=== PATIENT | female | born 1975 | race African-American/Black ===

== ENCOUNTER 2021-07-28 08:44 | Emergency (ER) | payer OTHER, MEDICARE ==
[~2021-07-28] VITALS: Ht 165.1 cm; Wt 81.8 kg
[2021-07-28 08:51] VITALS: BP 121/76
[2021-07-28 09:46] LABS: BASOPHILS # (AUTO) 0.1 X10'3 (0-0.2); BASOPHILS % (AUTO) 0.5 % (0-1); EOSINOPHILS # (AUTO) 0.1 X10'3 (0-0.9); EOSINOPHILS % (AUTO) 1.3 % (0-6); HEMATOCRIT 40.5 % (35.0-45.0); HEMOGLOBIN 13.9 g/dl (12.0-16.0); LYMPHOCYTES # (AUTO) 2.3 X10'3 (1.1-4.8); MEAN CORPUSCULAR HEMOGLOBIN 31.1 PG (27.0-31.0); MEAN CORPUSCULAR HGB CONC 34.2 g/dL (33.0-36.5); MEAN CORPUSCULAR VOLUME 90.7 FL (78-98); MEAN PLATELET VOLUME 7.3 FL (7.4-10.4); MONOCYTES # (AUTO) 0.6 X10'3 (0-0.9); MONOCYTES % (AUTO) 5.5 % (2-12); NEUTROPHILS # (AUTO) 7.8 X10'3 (1.8-7.7); NEUTROPHILS % (AUTO) 71.7 % (42-75); PLATELET COUNT 473 X10'3 (140-440); RED BLOOD COUNT 4.46 X10'6 (4.20-5.60); RED CELL DISTRIBUTION WIDTH 13.5 % (11.5-14.5); WHITE BLOOD COUNT 10.9 X10'3 (4.5-11.0)
[2021-07-28 10:00] LABS: ALANINE AMINOTRANSFERASE 18 U/L (12-78); ALBUMIN 4.1 G/DL (3.4-5.0); ALKALINE PHOSPHATASE 102 IU/L (46-116); ANION GAP 11 (8-16); ASPARTATE AMINO TRANSFERASE 10 U/L (10-37); BILIRUBIN,TOTAL 0.3 MG/DL (0.1-1.0); BLOOD UREA NITROGEN 24 MG/DL (7-18); BUN/CREATININE RATIO 19.8 (6.6-38.0); CALCIUM 9.2 MG/DL (8.5-10.1); CHLORIDE 105 MMOL/L (99-107); CREATININE 1.21 MG/DL (0.40-0.90); GLUCOSE 103 MG/DL (70-104); POTASSIUM 3.8 MMOL/L (3.5-5.1); SODIUM 142 MMOL/L (135-145); TOTAL CARBON DIOXIDE 26.4 MMOL/L (24-32); TOTAL PROTEIN 8.1 G/DL (6.4-8.2); eGFR 58 ML/MIN
== END 2021-07-28 13:15 | disposition left against medical advice (07) ==
LOC: ER 08:44
DX: R07.89 Other chest pain (principal); Z53.21 Procedure and treatment not carried out due to patient leaving prior to being seen by health care provider
CPT/HCPCS: 36415; 71045; 80053; 83880; 84484; 85025; 93005; 99285

== ENCOUNTER 2022-02-20 22:00 | Emergency (ER) | payer OTHER, MEDICARE ==
[~2022-02-20] VITALS: Ht 165.1 cm; Wt 93.2 kg
[2022-02-21] MEDS ORDERED: cloNIDine 0.1 mg tablet PO SCH (00:55)
[2022-02-21] MEDS ORDERED: CLON0.2T PO (00:57)
[2022-02-21 01:07] VITALS: BP 192/98
== END 2022-02-21 01:09 | disposition home or self-care (01) ==
LOC: ER 22:00
DX: I10 Essential (primary) hypertension (principal); R11.0 Nausea; F17.210 Nicotine dependence, cigarettes, uncomplicated; Z90.49 Acquired absence of other specified parts of digestive tract; Z88.8 Allergy status to other drugs, medicaments and biological substances; Z79.899 Other long term (current) drug therapy
CPT/HCPCS: 93005; 99284

== ENCOUNTER 2022-10-07 05:46 | Emergency (ER) | payer OTHER, MEDICARE ==
[~2022-10-07] VITALS: Ht 165.1 cm; Wt 77.5 kg
[~2022-10-07 05:46] MED LIST: CLON0.2T PO
[2022-10-07] MEDS ORDERED: atenolol 50mg tablet PO ONE (06:35)
[2022-10-07] MEDS ORDERED: cloNIDine 0.1 mg tablet PO ONE (06:35)
[2022-10-07] MEDS ORDERED: amLODIPine 5mg tablet PO ONE (06:35)
[2022-10-07 06:38] LABS: BASOPHILS # (AUTO) 0.1 X10'3 (0-0.2); BASOPHILS % (AUTO) 0.6 % (0-1); EOSINOPHILS # (AUTO) 0.2 X10'3 (0-0.9); EOSINOPHILS % (AUTO) 2.6 % (0-6); HEMATOCRIT 39.7 % (35.0-45.0); HEMOGLOBIN 13.5 g/dl (12.0-16.0); LYMPHOCYTES # (AUTO) 2.7 X10'3 (1.1-4.8); LYMPHOCYTES % (AUTO) 32.7 % (21-51); MEAN CORPUSCULAR HEMOGLOBIN 29.6 PG (27.0-31.0); MEAN CORPUSCULAR HGB CONC 33.9 g/dL (33.0-36.5); MEAN CORPUSCULAR VOLUME 87.2 FL (78-98); MEAN PLATELET VOLUME 7.6 FL (7.4-10.4); MONOCYTES # (AUTO) 0.4 X10'3 (0-0.9); MONOCYTES % (AUTO) 4.7 % (2-12); NEUTROPHILS # (AUTO) 4.9 X10'3 (1.8-7.7); NEUTROPHILS % (AUTO) 59.4 % (42-75); PLATELET COUNT 393 X10'3 (140-440); RED BLOOD COUNT 4.56 X10'6 (4.20-5.60); RED CELL DISTRIBUTION WIDTH 12.8 % (11.5-14.5); WHITE BLOOD COUNT 8.3 X10'3 (4.5-11.0)
[2022-10-07] MEDS ORDERED: CLON0.2T PO (06:38)
[2022-10-07 06:52] LABS: ALANINE AMINOTRANSFERASE 11 U/L (12-78); ALBUMIN 3.8 G/DL (3.4-5.0); ALBUMIN/GLOBULIN RATIO 1.1 (1.1-1.5); ALKALINE PHOSPHATASE 105 IU/L (46-116); ANION GAP 7 (8-16); ASPARTATE AMINO TRANSFERASE 14 U/L (10-37); BILIRUBIN,TOTAL 0.3 MG/DL (0.1-1.0); BLOOD UREA NITROGEN 19 MG/DL (7-18); BUN/CREATININE RATIO 28.4 (6.6-38.0); CALCIUM 9.2 MG/DL (8.5-10.1); CHLORIDE 106 MMOL/L (99-107); CREATININE 0.67 MG/DL (0.40-0.90); GLUCOSE 98 MG/DL (70-104); POTASSIUM 3.3 MMOL/L (3.5-5.1); SODIUM 141 MMOL/L (135-145); TOTAL CARBON DIOXIDE 27.6 MMOL/L (24-32); TOTAL PROTEIN 7.3 G/DL (6.4-8.2); eGFR > 90 ML/MIN
[2022-10-07 07:00] LABS: MAGNESIUM 1.9 MG/DL (1.5-2.4)
[2022-10-07 08:03] VITALS: BP 176/99
== END 2022-10-07 08:05 | disposition home or self-care (01) ==
LOC: ER 05:47
DX: I10 Essential (primary) hypertension (principal); F17.200 Nicotine dependence, unspecified, uncomplicated; F31.9 Bipolar disorder, unspecified; F12.10 Cannabis abuse, uncomplicated; Z88.5 Allergy status to narcotic agent; Z79.899 Other long term (current) drug therapy
CPT/HCPCS: 36415; 80053; 83735; 83880; 84484; 85025; 99284

== ENCOUNTER 2022-12-14 08:47 | Emergency (ER) | payer OTHER, MEDICARE ==
[~2022-12-14] VITALS: Ht 165.1 cm; Wt 77.3 kg
[2022-12-14] MEDS ORDERED: cloNIDine 0.1 mg tablet PO STA (09:42)
[2022-12-14] MEDS ORDERED: amLODIPine 5mg tablet PO ONE (09:45)
[2022-12-14] MEDS ORDERED: AMLO10TA PO (09:46)
[2022-12-14] MEDS ORDERED: CLON0.2T PO (09:46)
--- NOTE | 2022-12-14 10:30 | NUR ---
Per Pearl, RUFFLER its okay to give the Clonidine and Amlodipine when I reported to her that pt heart rate was between 46-50. Pt denies lightheadedness.
[2022-12-14 11:03] VITALS: BP 118/99
== END 2022-12-14 11:09 | disposition home or self-care (01) ==
LOC: ER 08:47
DX: I10 Essential (primary) hypertension (principal); F12.90 Cannabis use, unspecified, uncomplicated; Z88.8 Allergy status to other drugs, medicaments and biological substances
CPT/HCPCS: 99283

== ENCOUNTER 2023-02-08 01:33 | Emergency (ER) | payer OTHER, MEDICARE ==
[~2023-02-08] VITALS: Ht 165.1 cm; Wt 77.3 kg
[~2023-02-08 01:33] MED LIST changes: +AMLO10TA PO
[2023-02-08 01:56] VITALS: BP 152/112
[2023-02-08] MEDS ORDERED: cloNIDine 0.1 mg tablet PO SCH (04:15)
[2023-02-08] MEDS ORDERED: acetaminophen 325mg tablet PO ONE (04:15)
[2023-02-08] MEDS ORDERED: cloNIDine 0.1 mg tablet PO ONE (04:15)
[2023-02-08] MEDS ORDERED: clonidine PO (04:20)
== END 2023-02-08 05:34 | disposition home or self-care (01) ==
LOC: ER 01:34
DX: I10 Essential (primary) hypertension (principal); R51.9 Headache, unspecified; F12.90 Cannabis use, unspecified, uncomplicated; Z88.8 Allergy status to other drugs, medicaments and biological substances
CPT/HCPCS: 99283

== ENCOUNTER 2023-05-29 08:39 | Inpatient (IN) | payer OTHER, MEDICARE ==
[~2023-05-29] VITALS: Ht 165.1 cm; Wt 79.5 kg
[~2023-05-29 08:39] MED LIST changes: +clonidine PO
[2023-05-29 08:57] LABS: BASOPHILS # (AUTO) 0.1 X10'3 (0-0.2); BASOPHILS % (AUTO) 1.1 % (0-1); EOSINOPHILS # (AUTO) 0.2 X10'3 (0-0.9); EOSINOPHILS % (AUTO) 2.1 % (0-6); HEMATOCRIT 42.6 % (35.0-45.0); HEMOGLOBIN 14.9 g/dl (12.0-16.0); LYMPHOCYTES # (AUTO) 3.7 X10'3 (1.1-4.8); LYMPHOCYTES % (AUTO) 36.9 % (21-51); MEAN CORPUSCULAR HEMOGLOBIN 31.8 PG (27.0-31.0); MEAN CORPUSCULAR HGB CONC 34.9 g/dL (33.0-36.5); MEAN CORPUSCULAR VOLUME 91.1 FL (78-98); MEAN PLATELET VOLUME 7.3 FL (7.4-10.4); MONOCYTES # (AUTO) 0.5 X10'3 (0-0.9); MONOCYTES % (AUTO) 5.2 % (2-12); NEUTROPHILS # (AUTO) 5.5 X10'3 (1.8-7.7); NEUTROPHILS % (AUTO) 54.7 % (42-75); PLATELET COUNT 448 X10'3 (140-440); RED BLOOD COUNT 4.68 X10'6 (4.20-5.60); RED CELL DISTRIBUTION WIDTH 12.9 % (11.5-14.5); WHITE BLOOD COUNT 10.1 X10'3 (4.5-11.0)
[2023-05-29 09:10] LABS: ALANINE AMINOTRANSFERASE 16 U/L (12-78); ALBUMIN 4.4 G/DL (3.4-5.0); ALKALINE PHOSPHATASE 97 IU/L (46-116); ANION GAP 10 (8-16); ASPARTATE AMINO TRANSFERASE 13 U/L (10-37); BILIRUBIN,TOTAL 0.4 MG/DL (0.1-1.0); BLOOD UREA NITROGEN 13 MG/DL (7-18); CALCIUM 9.9 MG/DL (8.5-10.1); CHLORIDE 104 MMOL/L (99-107); CREATININE 0.93 MG/DL (0.40-0.90); GLUCOSE 91 MG/DL (70-104); POTASSIUM 3.1 MMOL/L (3.5-5.1); SODIUM 140 MMOL/L (135-145); TOTAL CARBON DIOXIDE 25.9 MMOL/L (24-32); TOTAL PROTEIN 8.6 G/DL (6.4-8.2); eCRCL 68 ML/MIN; eGFR 79 ML/MIN
[2023-05-29 09:17] LABS: PRO BRAIN NATRIURETIC PEPTIDE 360 PG/ML (0-125)
[2023-05-29] MEDS ORDERED: nitroGLYCERIN 0.4mg SUBLingual tab SL PRN ×2 (10:25→23:00)
[2023-05-29] MEDS ORDERED: cloNIDine 0.1 mg tablet PO ONE ×2 (10:25→11:35)
[2023-05-29] MEDS ORDERED: aspirin 325mg tablet, delayed-release (Ecotrin) PO ONE (10:25)
[2023-05-29] MEDS: POTASSIUM BICARB 20meq eff tab 20 MEQ TABLET.EFF PO SCH (10:30)
[2023-05-29] MEDS ORDERED: CLON0.3T PO (12:04)
[2023-05-29] MEDS ORDERED: ATEN50TA PO (12:04)
[2023-05-29] MEDS ORDERED: AMLO10TA PO (12:05)
[2023-05-29] MEDS ORDERED: acetaminophen 325mg tablet PO ONE (12:10)
[2023-05-29] MEDS ORDERED: enoxaparin 100mg/ml syringe SUBCUT ONE (13:50)
[2023-05-29] MEDS ORDERED: clopidogrel 300mg tablet PO ONE (13:50)
[2023-05-29] MEDS ORDERED: enoxaparin 80mg/0.8ml syringe SUBCUT ONE (13:55)
[2023-05-29] MEDS ORDERED: potassium Cl 20 mEq SR tablet PO PRN (15:15)
[2023-05-29] MEDS ORDERED: acetaminophen 325mg tablet PO PRN (15:15)
[2023-05-29] MEDS ORDERED: magnesium 2GM in 50ml NS 50 ML IV PRN (15:15)
[2023-05-29] MEDS ORDERED: magnesium 4gm in 100ml NS 100 ML IV PRN (15:15)
[2023-05-29] MEDS ORDERED: ondansetron/PF 4mg/2ml inj IV PRN (15:15)
[2023-05-29] MEDS ORDERED: potassium Cl 40MEQ/1/2NS 520ml 520 ML IV PRN (15:15)
[2023-05-29] MEDS ORDERED: magnesium Cl slow-release 64mg tablet PO PRN (15:15)
[2023-05-29] MEDS ORDERED: magnesium hydroxide 30ml (MOM) UD suspension PO PRN (15:15)
[2023-05-29] MEDS ORDERED: mag hydrox/Alum hydrox/simeth 30ml oral suspension PO PRN (15:15)
[2023-05-29] MEDS ORDERED: amLODIPine 5mg tablet PO SCH ×2 (15:25→20:00)
[2023-05-29] MEDS ORDERED: labetalol 100mg tablet PO STA (16:20)
[2023-05-29 16:55] VITALS: BP 181/110; PULSE 67; RESP 20; TEMP 97.5; O2SAT 98
[2023-05-29 18:00] VITALS: BP 130/90; PULSE 89; RESP 12; TEMP 97.7; O2SAT 100
[2023-05-29] MEDS: potassium Cl 20 mEq SR tablet PO PRN ×2 (18:05→22:05)
[2023-05-29] MEDS ORDERED: hydrALAZINE 20mg/ml inj. IV PRN (18:40)
[2023-05-29] MEDS: nicotine 7mg patch - 24hr TD SCH (19:00)
[2023-05-29 20:00] VITALS: RESP 12; O2SAT 100
[2023-05-29] MEDS ORDERED: heparin, porcine 5000 units/ml vial SQ SCH (20:00)
[2023-05-29] MEDS: K and/or MAG REPLACEMENT MC SCH (20:00)
[2023-05-29] MEDS: docusate sod 100mg capsule PO SCH (20:32)
[2023-05-29] MEDS: atenolol 50mg tablet PO SCH (20:32)
[2023-05-29] MEDS: cloNIDine 0.1 mg tablet PO SCH (20:33)
[2023-05-29 22:00] VITALS: BP 92/53; PULSE 80; RESP 14; TEMP 97.7; O2SAT 99
[2023-05-29] MEDS ORDERED: aminophylline 250mg/10ml inj. IV PRN (23:00)
[2023-05-29] MEDS ORDERED: metoprolol tartrate 1mg/ml inj IV PRN (23:00)
[2023-05-29] MEDS ORDERED: regadenoson 0.4mg/5ml syringe IV PRN (23:00)
[2023-05-30] VITALS (15 sets, daily range): BP systolic 103–154; BP diastolic 60–94; PULSE 73–94; RESP 11–24; TEMP 97.2–97.9; O2SAT 98–100
[2023-05-30] MEDS: potassium Cl 20 mEq SR tablet PO PRN (02:22)
[2023-05-30 06:31] LABS: ALANINE AMINOTRANSFERASE 17 U/L (12-78); ALBUMIN 3.8 G/DL (3.4-5.0); ALKALINE PHOSPHATASE 89 IU/L (46-116); ANION GAP 5 (8-16); ASPARTATE AMINO TRANSFERASE 16 U/L (10-37); BILIRUBIN,TOTAL 0.4 MG/DL (0.1-1.0); BLOOD UREA NITROGEN 18 MG/DL (7-18); BUN/CREATININE RATIO 20.2 (10.0-20.0); CHLORIDE 106 MMOL/L (99-107); CREATININE 0.89 MG/DL (0.40-0.90); GLUCOSE 97 MG/DL (70-104); SODIUM 139 MMOL/L (135-145); TOTAL CARBON DIOXIDE 28.3 MMOL/L (24-32); TOTAL PROTEIN 7.5 G/DL (6.4-8.2); eCRCL 71 ML/MIN; eGFR 83 ML/MIN
[2023-05-30 06:34] LABS: CHOLESTEROL 201 MG/DL (0-200); HDL CHOLESTEROL 40 MG/DL (35-60); LDL CHOLESTEROL 135 MG/DL (50-100); MAGNESIUM 2.3 MG/DL (1.5-2.4); TRIGLYCERIDES 93 MG/DL (20-135)
[2023-05-30 06:40] LABS: BASOPHILS # (AUTO) 0.1 X10'3 (0-0.2); BASOPHILS % (AUTO) 0.8 % (0-1); EOSINOPHILS # (AUTO) 0.3 X10'3 (0-0.9); EOSINOPHILS % (AUTO) 3.7 % (0-6); HEMATOCRIT 40.7 % (35.0-45.0); HEMOGLOBIN 14.1 g/dl (12.0-16.0); LYMPHOCYTES # (AUTO) 2.8 X10'3 (1.1-4.8); MEAN CORPUSCULAR HEMOGLOBIN 31.6 PG (27.0-31.0); MEAN CORPUSCULAR HGB CONC 34.6 g/dL (33.0-36.5); MEAN CORPUSCULAR VOLUME 91.4 FL (78-98); MEAN PLATELET VOLUME 7.7 FL (7.4-10.4); MONOCYTES # (AUTO) 0.5 X10'3 (0-0.9); MONOCYTES % (AUTO) 6.3 % (2-12); NEUTROPHILS # (AUTO) 3.9 X10'3 (1.8-7.7); NEUTROPHILS % (AUTO) 52.2 % (42-75); PLATELET COUNT 401 X10'3 (140-440); RED BLOOD COUNT 4.45 X10'6 (4.20-5.60); RED CELL DISTRIBUTION WIDTH 13.1 % (11.5-14.5); WHITE BLOOD COUNT 7.5 X10'3 (4.5-11.0)
--- NOTE | 2023-05-30 06:46 | NUR ---
Problems reprioritized. Patient report given, questions answered & plan of care reviewed with Princess RESIDENCE LIFE DIRECTOR.
[2023-05-30] MEDS ORDERED: enoxaparin 80mg/0.8ml syringe SUBCUT SCH (08:00)
[2023-05-30] MEDS: K and/or MAG REPLACEMENT MC SCH ×2 (08:00→20:00)
[2023-05-30] MEDS: cloNIDine 0.1 mg tablet PO SCH ×2 (08:25→19:55)
[2023-05-30] MEDS: amLODIPine 5mg tablet PO SCH (08:25)
[2023-05-30] MEDS: docusate sod 100mg capsule PO SCH ×2 (08:26→19:54)
[2023-05-30] MEDS: nicotine 7mg patch - 24hr TD SCH (08:26)
[2023-05-30] MEDS: atenolol 50mg tablet PO SCH ×2 (08:26→20:00)
--- NOTE | 2023-05-30 08:31 | NUR ---
This RN has reviewed and agrees w/the MOTHER BABY RN's physical assessment of this pt.
--- NOTE | 2023-05-30 09:30 | NUR ---
Patient off unit at Debi scan
[2023-05-30] MEDS: POTASSIUM BICARB 20meq eff tab 20 MEQ TABLET.EFF PO SCH (10:30)
--- NOTE | 2023-05-30 12:27 | NUR ---
Patient returned to unit from [facility] scan
--- NOTE | 2023-05-30 13:40 | NUR ---
Message: [id number] [place] report is back. Thank you Shruthi PRICE [phone] Custom Responses: promotional table spacer Transaction number: [id number]
--- NOTE | 2023-05-30 15:30 | NUR ---
AGREE WITH LEAD BI DEVELOPER AM ASSESSMENT
[2023-05-30 16:27] LABS: BILIRUBIN,URINE SMALL (Neg); CLARITY,URINE SLIGHTLY CLOUDY (Clear); COLOR,URINE YELLOW (Yellow); GLUCOSE, URINE NEGATIVE (Neg); KETONES,URINE TRACE mg/dl (Neg); LEUKOCYTE ESTERASE ,URINE SMALL (Neg); NITRITES, URINE NEGATIVE (Neg); OCCULT BLOOD,URINE TRACE-INTACT (Neg); PROTEIN,URINE NEGATIVE (Neg)
[2023-05-30 16:31] LABS: UA COLLECTION TYPE CLN CATCH MIDSTREAM
[2023-05-30 16:36] LABS: MUCUS STRANDS FEW /LPF (Neg); SQUAMOUS EPITHELIAL CELL,UR MANY /LPF (FEW)
[2023-05-30 16:39] LABS: BACTERIA,URINE 1+ /HPF (Neg); RBC,URINE 0-2 /HPF (0-2); WBC,URINE 0-4 /HPF (0-4)
--- NOTE | 2023-05-30 16:40 | NUR ---
Lab called and rejected patient's urine sample due to to many epithelial cells
--- NOTE | 2023-05-30 18:29 | NUR ---
Problems reprioritized. Patient report given, questions answered & plan of care reviewed with Boom PRICE.
--- NOTE | 2023-05-30 18:29 | NUR ---
Dr Andres Donaldson came and saw patient. Gave orders to let patient eat and drink until 1400 on 05/31.
[2023-05-31] VITALS (14 sets, daily range): BP systolic 103–195; BP diastolic 73–137; PULSE 66–120; RESP 10–20; TEMP 97.7–98.8; O2SAT 95–100
--- NOTE | 2023-05-31 06:23 | NUR ---
Patient in room PCU 3012. I have received report from Boom PRICE and had the opportunity to ask questions and assume patient care.
[2023-05-31 07:02] LABS: BASOPHILS # (AUTO) 0.1 X10'3 (0-0.2); BASOPHILS % (AUTO) 1.2 % (0-1); EOSINOPHILS # (AUTO) 0.2 X10'3 (0-0.9); HEMATOCRIT 39.3 % (35.0-45.0); HEMOGLOBIN 13.7 g/dl (12.0-16.0); LYMPHOCYTES # (AUTO) 2.8 X10'3 (1.1-4.8); LYMPHOCYTES % (AUTO) 35.1 % (21-51); MEAN CORPUSCULAR HEMOGLOBIN 31.7 PG (27.0-31.0); MEAN CORPUSCULAR HGB CONC 34.8 g/dL (33.0-36.5); MEAN PLATELET VOLUME 7.5 FL (7.4-10.4); MONOCYTES # (AUTO) 0.5 X10'3 (0-0.9); MONOCYTES % (AUTO) 6.1 % (2-12); NEUTROPHILS # (AUTO) 4.3 X10'3 (1.8-7.7); NEUTROPHILS % (AUTO) 54.6 % (42-75); PLATELET COUNT 386 X10'3 (140-440); RED BLOOD COUNT 4.32 X10'6 (4.20-5.60); RED CELL DISTRIBUTION WIDTH 13.3 % (11.5-14.5)
[2023-05-31 07:12] LABS: ALANINE AMINOTRANSFERASE 16 U/L (12-78); ALBUMIN 3.5 G/DL (3.4-5.0); ALKALINE PHOSPHATASE 85 IU/L (46-116); ANION GAP 9 (8-16); ASPARTATE AMINO TRANSFERASE 14 U/L (10-37); BILIRUBIN,TOTAL 0.3 MG/DL (0.1-1.0); BLOOD UREA NITROGEN 17 MG/DL (7-18); BUN/CREATININE RATIO 16.5 (10.0-20.0); CALCIUM 8.7 MG/DL (8.5-10.1); CHLORIDE 107 MMOL/L (99-107); CREATININE 1.03 MG/DL (0.40-0.90); GLUCOSE 89 MG/DL (70-104); MAGNESIUM 2.2 MG/DL (1.5-2.4); PHOSPHORUS 3.3 MG/DL (2.3-4.5); POTASSIUM 3.6 MMOL/L (3.5-5.1); SODIUM 140 MMOL/L (135-145); THYROID STIMULATING HORMONE 0.25 ulU/ml (0.34-4.50); TOTAL CARBON DIOXIDE 24.1 MMOL/L (24-32); eCRCL 61 ML/MIN; eGFR 70 ML/MIN
[2023-05-31] MEDS: enoxaparin 40mg/0.4ml syringe SUBCUT SCH (07:44)
[2023-05-31] MEDS: cloNIDine 0.1 mg tablet PO SCH ×2 (07:45→21:45)
[2023-05-31] MEDS: atenolol 50mg tablet PO SCH ×2 (07:45→21:45)
[2023-05-31] MEDS: amLODIPine 5mg tablet PO SCH (07:45)
[2023-05-31] MEDS: docusate sod 100mg capsule PO SCH ×2 (07:45→21:45)
[2023-05-31] MEDS: nicotine 7mg patch - 24hr TD SCH (07:46)
[2023-05-31] MEDS: K and/or MAG REPLACEMENT MC SCH ×2 (07:52→20:00)
[2023-05-31 08:05] LABS: HEMOGLOBIN A1C 5.9 % (4.5-6.2)
[2023-05-31] MEDS: POTASSIUM BICARB 20meq eff tab 20 MEQ TABLET.EFF PO SCH (10:30)
[2023-05-31] MEDS ORDERED: verapamil 2.5 mg/ml inj IV ONE (16:59)
[2023-05-31] MEDS ORDERED: LIDOcaine 1% (10mg/ml) 2ml vial ONE (16:59)
[2023-05-31] MEDS ORDERED: heparin 1,000 UNITS/NS 500ml 500 ML ONE ×2 (17:00→17:01)
[2023-05-31] MEDS ORDERED: midazolam 1 mg/ML 2ml injection ONE (17:00)
[2023-05-31] MEDS ORDERED: iohexol 350MG/ML 100ml bottle IV ONE ×2 (17:00→17:46)
[2023-05-31] MEDS ORDERED: heparin 1,000unit/ml 10ml vial 10 ML ONE (17:00)
[2023-05-31] MEDS ORDERED: fentaNYL/PF 50MCG/1 ML 2ML syringe ONE (17:00)
[2023-05-31] MEDS ORDERED: nitroGLYCERIN 500mcg/5mL D5W 5 ML IV ONE (17:03)
[2023-05-31] MEDS ORDERED: ticagrelor 90mg tablet ONE (17:41)
[2023-05-31] MEDS ORDERED: aspirin 325mg tablet ONE (17:41)
[2023-05-31] MEDS ORDERED: iohexol 350 MG/ML 50ML vial IV ONE (18:03)
--- NOTE | 2023-05-31 18:24 | NUR ---
Problems reprioritized. Patient report given, questions answered & plan of care reviewed with Meron HAMMER.
[2023-05-31] MEDS ORDERED: HYDROcodone/acetaminophen 5mg/325mg tablet PO PRN (18:45)
[2023-05-31] MEDS ORDERED: HYDROcodone/acetaminophen 10/325mg tab PO PRN (18:45)
--- NOTE | 2023-05-31 19:30 | NUR ---
pt complained of R arm pain,on accessing the arm, nurse noticed that pt's arm above the vascband was swollen and tender.This nurse informed the charge ,who came at once to access the site. On reaching the pt's room, the pt wouldn't let the charge touch her hand as she said it was very painful. the charge ,including this nurse and another nurse explained to the pt the she was bleeding inside and that charge nurse needs to access it and add manual pressure to the bleeding site. Pt continued to withdraw her arm when touched by charge nurse and even banged on the bed with her L hand. She refused to let any one touch her R arm.Charge made it known to her that she could bleed to if the bleeding is not arrested. Patient kept yelling and resisting.Charge nurse left the room, while this nurse and the other nurse stayed to convince the pt. Latter the pt allowed the charge to apply pressure and bleeding was arrested. Since then pt has been angry. Surgeon was notified of the hematoma and process taken to arrest the bleeding. Surgeon also okayed iv morphine 2mg for pain .
[2023-05-31] MEDS: ticagrelor 90mg tablet PO SCH (20:00)
[2023-05-31] MEDS ORDERED: morphine 2 MG/ML inj. syringe IV PRN (20:05)
[2023-06-01 02:00] VITALS: BP_SYST 132; BP_SYST 159; BP_DIAS 82; BP_DIAS 91; PULSE 79; PULSE 92; RESP 13; RESP 18; TEMP 97.9; TEMP 98.1; O2SAT 98; O2SAT 99
[2023-06-01 06:00] VITALS: BP 147/99; PULSE 75; RESP 16; TEMP 97.8; O2SAT 97
--- NOTE | 2023-06-01 06:30 | NUR ---
Patient in room PCU 3026. I have received report from Meron HAMMER and had the opportunity to ask questions and assume patient care.
--- NOTE | 2023-06-01 06:36 | NUR ---
Problems reprioritized. Patient report given, questions answered & plan of care reviewed with Rosalia
[2023-06-01 07:28] LABS: BASOPHILS # (AUTO) 0.1 X10'3 (0-0.2); BASOPHILS % (AUTO) 0.7 % (0-1); EOSINOPHILS # (AUTO) 0.2 X10'3 (0-0.9); EOSINOPHILS % (AUTO) 2.2 % (0-6); HEMATOCRIT 40.5 % (35.0-45.0); LYMPHOCYTES # (AUTO) 2.6 X10'3 (1.1-4.8); LYMPHOCYTES % (AUTO) 26.3 % (21-51); MEAN CORPUSCULAR HEMOGLOBIN 31.3 PG (27.0-31.0); MEAN CORPUSCULAR HGB CONC 34.5 g/dL (33.0-36.5); MEAN CORPUSCULAR VOLUME 90.8 FL (78-98); MEAN PLATELET VOLUME 7.6 FL (7.4-10.4); MONOCYTES # (AUTO) 0.7 X10'3 (0-0.9); MONOCYTES % (AUTO) 6.8 % (2-12); NEUTROPHILS # (AUTO) 6.3 X10'3 (1.8-7.7); PLATELET COUNT 417 X10'3 (140-440); RED BLOOD COUNT 4.46 X10'6 (4.20-5.60); RED CELL DISTRIBUTION WIDTH 13.2 % (11.5-14.5); WHITE BLOOD COUNT 9.9 X10'3 (4.5-11.0)
[2023-06-01] MEDS: ticagrelor 90mg tablet PO SCH (07:51)
[2023-06-01] MEDS: cloNIDine 0.1 mg tablet PO SCH (07:52)
[2023-06-01] MEDS: docusate sod 100mg capsule PO SCH (07:52)
[2023-06-01] MEDS: atenolol 50mg tablet PO SCH (07:52)
[2023-06-01] MEDS: amLODIPine 5mg tablet PO SCH (07:53)
[2023-06-01] MEDS: nicotine 7mg patch - 24hr TD SCH (07:54)
[2023-06-01] MEDS: enoxaparin 40mg/0.4ml syringe SUBCUT SCH (07:56)
[2023-06-01 08:00] VITALS: RESP 16; O2SAT 97
[2023-06-01] MEDS ORDERED: aspirin 81mg, enteric-coated 1 TAB TABLET.DR PO SCH (08:00)
[2023-06-01] MEDS ORDERED: ticagrelor 90mg tablet PO SCH (08:00)
[2023-06-01] MEDS: K and/or MAG REPLACEMENT MC SCH (08:00)
[2023-06-01 08:06] LABS: ALANINE AMINOTRANSFERASE 18 U/L (12-78); ALBUMIN/GLOBULIN RATIO 1.1 (1.1-1.5); ALKALINE PHOSPHATASE 90 IU/L (46-116); ANION GAP 10 (8-16); ASPARTATE AMINO TRANSFERASE 19 U/L (10-37); BILIRUBIN,TOTAL 0.4 MG/DL (0.1-1.0); BLOOD UREA NITROGEN 11 MG/DL (7-18); BUN/CREATININE RATIO 12.8 (10.0-20.0); CALCIUM 9.4 MG/DL (8.5-10.1); CHLORIDE 104 MMOL/L (99-107); CHOLESTEROL 185 MG/DL (0-200); CREATININE 0.86 MG/DL (0.40-0.90); GLUCOSE 92 MG/DL (70-104); LDL CHOLESTEROL 121 MG/DL (50-100); MAGNESIUM 2.2 MG/DL (1.5-2.4); PHOSPHORUS 2.9 MG/DL (2.3-4.5); POTASSIUM 3.3 MMOL/L (3.5-5.1); SODIUM 139 MMOL/L (135-145); TOTAL CARBON DIOXIDE 24.7 MMOL/L (24-32); TOTAL PROTEIN 7.7 G/DL (6.4-8.2); TRIGLYCERIDES 81 MG/DL (20-135); eCRCL 74 ML/MIN; eGFR 86 ML/MIN
[2023-06-01 08:34] LABS: CHOL/HDL RATIO 4.6 (0.00-4.99)
[2023-06-01] MEDS ORDERED: lisinopril 20mg tablet PO SCH (08:50)
[2023-06-01] MEDS: POTASSIUM BICARB 20meq eff tab 20 MEQ TABLET.EFF PO SCH (10:30)
[2023-06-01] MEDS: potassium Cl 20 mEq SR tablet PO PRN (11:21)
[2023-06-01 11:30] VITALS: BP 143/92; PULSE 69; RESP 22; TEMP 98.1; O2SAT 98
[2023-06-01 12:02] LABS: HDL CHOLESTEROL 41 MG/DL (35-60)
[2023-06-01] MEDS ORDERED: AMLO10TA PO (12:31)
[2023-06-01] MEDS ORDERED: LISI20TA28 PO (12:31)
[2023-06-01] MEDS ORDERED: ASPI-1071 PO (12:31)
[2023-06-01] MEDS ORDERED: TICA90TA PO (12:54)
[2023-06-01] MEDS ORDERED: clopidogrel 300mg tablet PO ONE (13:45)
--- NOTE | 2023-06-01 16:22 | NUR ---
Pt stable for discharge per Dr. Elliott. All discharge instructions reviewed with patient and all questions answered, pt verbalized understanding. [facility] [place] There was a discrepancy with the [facility], [facility] PL[facility] and was switched to Plavix. Per Dr. Donaldson I gave a loading dose of Plavix 600mg. PIV discontinued, cannula intact. Tele discontinued. All belongings collected and sent with patient. Wheeled to lobby via nursing staff and picked up by son.
== END 2023-06-01 14:10 | disposition home or self-care (01) | DRG 322 ==
LOC: ER 08:40 → ED HOLD 15:02 → EDBEDREQ 15:50 → PCU 3S 17:05
PROVIDERS: ADMIT Family Medicine; ATTEND Family Medicine
PROC: 4A02XM4 Measurement of Cardiac Total Activity, External Approach (ICD-10-PCS; 2023-05-30)
PROC: 3E073KZ Introduction of Other Diagnostic Substance into Coronary Artery, Percutaneous Approach (ICD-10-PCS; 2023-05-30)
PROC: 027034Z Dilation of Coronary Artery, One Artery with Drug-eluting Intraluminal Device, Percutaneous Approach (ICD-10-PCS; principal; 2023-05-31)
PROC: 4A023N7 Measurement of Cardiac Sampling and Pressure, Left Heart, Percutaneous Approach (ICD-10-PCS; 2023-05-31)
PROC: B2111ZZ Fluoroscopy of Multiple Coronary Arteries using Low Osmolar Contrast (ICD-10-PCS; 2023-05-31)
DX: I21.4 Non-ST elevation (NSTEMI) myocardial infarction (principal); I16.1 Hypertensive emergency; I10 Essential (primary) hypertension; F41.9 Anxiety disorder, unspecified; F12.90 Cannabis use, unspecified, uncomplicated; F32.A Depression, unspecified; I25.10 Atherosclerotic heart disease of native coronary artery without angina pectoris; E87.6 Hypokalemia; G40.909 Epilepsy, unspecified, not intractable, without status epilepticus; E78.5 Hyperlipidemia, unspecified; Z79.899 Other long term (current) drug therapy; Z90.49 Acquired absence of other specified parts of digestive tract; Z88.8 Allergy status to other drugs, medicaments and biological substances; Z85.43 Personal history of malignant neoplasm of ovary
CPT/HCPCS: 93306; 93458; 99285; C9600; 36415; 70450; 71045; 78452; 80053; 80061; 81001; 83036; 83735; 83880; 84100; 84443; 84484; 85025; 93005; 93017; 99152; 99153; A6258; A9500; C1725; C1751; C1769; C1874; C1894; G0378; J0360; J1644; J1650; J2250; J2270; J2785; J3010; J3490; J7030; Q9967

== ENCOUNTER 2023-12-05 04:53 | Emergency (ER) | payer OTHER, MEDICARE, MEDICAID ==
[~2023-12-05] VITALS: Ht 162.6 cm; Wt 77.3 kg
[~2023-12-05 04:53] MED LIST changes: +ASPI-1071 PO; +ATEN50TA PO; +LISI20TA28 PO; +TICA90TA PO; -clonidine PO
[2023-12-05 05:02] VITALS: TEMP 97.8
[2023-12-05] MEDS: cloNIDine 0.1 mg tablet PO ONE ×2 (07:18→08:24)
[2023-12-05 07:25] LABS: BILIRUBIN,URINE NEGATIVE (Neg); CLARITY,URINE CLEAR (Clear); COLOR,URINE YELLOW (Yellow); GLUCOSE, URINE NEGATIVE (Neg); KETONES,URINE NEGATIVE (Neg); LEUKOCYTE ESTERASE ,URINE NEGATIVE (Neg); NITRITES, URINE NEGATIVE (Neg); OCCULT BLOOD,URINE TRACE-INTACT (Neg); PROTEIN,URINE NEGATIVE (Neg); UROBILINOGEN,URINE 0.2 E.U/dL (0.2-1.0)
[2023-12-05 07:25] LABS: BASOPHILS # (AUTO) 0.1 X10'3 (0-0.2); EOSINOPHILS # (AUTO) 0.4 X10'3 (0-0.9); EOSINOPHILS % (AUTO) 5.5 % (0-6); HEMATOCRIT 35.8 % (35.0-45.0); HEMOGLOBIN 11.8 g/dl (12.0-16.0); LYMPHOCYTES # (AUTO) 2.6 X10'3 (1.1-4.8); LYMPHOCYTES % (AUTO) 35.5 % (21-51); MEAN CORPUSCULAR HEMOGLOBIN 28.3 PG (27.0-31.0); MEAN CORPUSCULAR HGB CONC 32.8 g/dL (33.0-36.5); MEAN CORPUSCULAR VOLUME 86.2 FL (78-98); MEAN PLATELET VOLUME 7.8 FL (7.4-10.4); MONOCYTES # (AUTO) 0.5 X10'3 (0-0.9); MONOCYTES % (AUTO) 6.7 % (2-12); NEUTROPHILS # (AUTO) 3.8 X10'3 (1.8-7.7); NEUTROPHILS % (AUTO) 51.3 % (42-75); PLATELET COUNT 353 X10'3 (140-440); RED BLOOD COUNT 4.15 X10'6 (4.20-5.60); RED CELL DISTRIBUTION WIDTH 14.8 % (11.5-14.5); WHITE BLOOD COUNT 7.3 X10'3 (4.5-11.0)
[2023-12-05 07:29] LABS: UA COLLECTION TYPE VOIDED
[2023-12-05 07:39] LABS: BACTERIA,URINE FEW /HPF (Neg); MUCUS STRANDS NONE SEEN /LPF (Neg); RBC,URINE 0-2 /HPF (0-2); SQUAMOUS EPITHELIAL CELL,UR FEW /LPF (FEW); WBC,URINE 0-4 /HPF (0-4)
[2023-12-05 07:45] LABS: ALBUMIN 3.5 G/DL (3.4-5.0); ANION GAP 10 (8-16); BLOOD UREA NITROGEN 13 MG/DL (7-18); BUN/CREATININE RATIO 12.6 (10.0-20.0); CALCIUM 8.8 MG/DL (8.5-10.1); CHLORIDE 107 MMOL/L (99-107); CREATININE 1.03 MG/DL (0.40-0.90); GLUCOSE 85 MG/DL (70-104); MAGNESIUM 2.1 MG/DL (1.5-2.4); POTASSIUM 3.9 MMOL/L (3.5-5.1); PRO BRAIN NATRIURETIC PEPTIDE 86 PG/ML (0-125); SODIUM 143 MMOL/L (135-145); TOTAL CARBON DIOXIDE 26.2 MMOL/L (24-32); eCRCL 58 ML/MIN; eGFR 69 ML/MIN
[2023-12-05] MEDS: LORazepam 1 MG tablet PO ONE (08:24)
[2023-12-05 09:24] VITALS: BP 163/93; PULSE 73; RESP 16; O2SAT 100
[2023-12-05] MEDS ORDERED: CLON0.3T PO (12:31)
== END 2023-12-05 12:37 | disposition home or self-care (01) ==
LOC: ER 04:54
DX: I16.0 Hypertensive urgency (principal); I10 Essential (primary) hypertension; R51.9 Headache, unspecified; Z90.49 Acquired absence of other specified parts of digestive tract; F41.9 Anxiety disorder, unspecified; F32.9 Major depressive disorder, single episode, unspecified; Z88.8 Allergy status to other drugs, medicaments and biological substances
CPT/HCPCS: 36415; 70450; 71045; 80048; 81001; 83735; 83880; 84484; 85025; 93005; 99285